=== PATIENT | female | born 1990 | race African-American/Black ===

== ENCOUNTER 2019-07-03 23:04 | Emergency (ER) | payer MEDICAID ==
[~2019-07-03] VITALS: Ht 167.6 cm; Wt 77.1 kg
[~2019-07-03 23:04] MED LIST: ACETAMINOPHEN-1 EAC1 ORAL; IBUPROFEN600 MG ORAL; NKM
--- NOTE | 2019-07-04 | NUR ---
ED Nurse Note: Walk-in patient with complaints left leg pain, x 1 day. 10/10 pain level. Patient is accompanied by a small child.
[2019-07-04] MEDS ORDERED: Ketorolac 60mg Inj IM ONE (00:30)
[2019-07-04] MEDS ORDERED: HYDROCODON-ACE1 EA15 ORAL (01:25)
[2019-07-04] MEDS ORDERED: IBUPROFEN600 MG ORAL (01:25)
--- NOTE | 2019-07-04 01:25 | Emergency Room Report ---
History of Present Illness General Chief Complaint: Lower Extremity Injury Source: Patient Present Illness HPI Is a 28-year-old female with no past medical history. She presents with chief complaint of left thigh pain. Onset for last couple days. No trauma. It was slowly painful but now severe. Worse with movement. Worse with palpation. Localized to the lateral aspect of the hip and thigh area. No injury. Pain is 9 out of 10. Allergies: Coded Allergies: No Known Allergies (Unverified , 04/29/16) Patient History Past Medical History: none, see triage record, old chart reviewed Past Surgical History: none Pertinent Family History: none Social History: Denies: smoking Last Menstrual Period: 07/03/19 Now: No Immunizations: other Reviewed Nursing Documentation: PMH: Agreed; PSxH: Agreed Nursing Documentation-PMH Past Medical History: No Stated History Review of Systems Eye: Denies: eye pain, blurred vision ENT: Denies: ear pain, nose congestion, throat swelling Respiratory: Denies: cough, shortness of breath Cardiovascular: Denies: chest pain, palpitations Gastrointestinal: Denies: abdominal pain, diarrhea, nausea, vomiting Musculoskeletal: Reports: joint pain, muscle pain; Denies: back pain Skin: Denies: rash Neurological: Denies: headache, numbness Endocrine: Denies: increased thirst, increased urine Hematologic/Lymphatic: Denies: easy bruising All Other Systems: negative except mentioned in HPI Physical Exam Vital Signs Date Time Temp Pulse Resp B/P (MAP) Pulse Ox O2 Delivery O2 Flow Rate FiO2 07/03/19 23:57 98.4 90 18 118/81 (93) 97 Room Air Vitals normal Sp02 EP Interpretation: reviewed, normal General Appearance: well appearing, no apparent distress, alert Head: normocephalic, atraumatic Eyes: bilateral eye PERRL, bilateral eye EOMI ENT: hearing grossly normal, normal pharynx Neck: full range of motion, supple, no meningismus Respiratory: chest non-tender, lungs clear, normal breath sounds Cardiovascular #1: regular rate, rhythm, no murmur Gastrointestinal: normal bowel sounds, non tender, no mass, no organomegaly, no bruit, non-distended Musculoskeletal: back normal, gait/station normal, normal range of motion, other - Left leg: She has tenderness along the iliotibial band. Hip tender with movement and range of motion. Psychiatric: mood/affect normal Medical Decision Making Diagnostic Impression: Primary Impression: Iliotibial band syndrome, left leg ER Course Patient with inflammation of the iliotibial band. No evidence of any fracture dislocation. No DVT clinically. Will discharge home. Other X-Ray Diagnostic Results Other X-Ray Diagnostic Results : X-Ray ordered: X-rays of left hip # of Views/Limited Vs Complete: 3 View Indication: Pain EP Interpretation: Yes Interpretation: no dislocation, no soft tissue swelling, no fractures Impression: No acute disease Electronically Signed by: Costa Berrios MD Last Vital Signs Date Time Temp Pulse Resp B/P (MAP) Pulse Ox O2 Delivery O2 Flow Rate FiO2 07/03/19 23:57 98.4 90 18 118/81 (93) 97 Room Air Status: improved Disposition: HOME, SELF-CARE Condition: Stable Scripts Ibuprofen* (MOTRIN*) 600 Mg Tablet 600 MG ORAL THREE TIMES A DAY, #30 TAB 0 Refills Prov: Costa Berrios MD 07/04/19 Hydrocodone/Acetaminophen 5-325* (HYDROCODONE/ACETAMINOPHEN 5-325*) 1 Each Tablet 1 TAB ORAL Q6H PRN for For Pain, #15 TAB 0 Refills Prov: Costa Berrios MD 07/04/19 Additional Instructions: Follow-up with your doctor in 7 days. If continue with pain after 1 to 2 weeks , may need an MRI. Return if worse. Costa Berrios MD Jul 04, 2019 01:25
[2019-07-04 01:40] VITALS: BP 118/81
--- NOTE | 2019-07-04 01:40 | NUR ---
ER DISCHARGE NOTE: Patient is cleared to be discharged per ERMD, pt is aox4, on room air, with stable vital signs. pt was given dc and prescription instructions, pt was able to verbalize understanding, pt id band removed without complications. pt is able to ambulate with steady gait. pt took all belongings. pt able to verbalize proper medication administration and s/s to monitor for, nad noted during d/c.
--- NOTE | 2019-07-04 16:03 | Diagnostic Imaging Report ---
Indication: Left hip pain for 2 days Technique: One view the pelvis, 2 views of the left hip Comparison: none Findings: No acute fractures. No dislocations. The joint spaces are preserved. Impression: No acute process
== END 2019-07-04 01:40 | disposition home or self-care (01) ==
LOC: EMR 07-04 00:19
DX: M76.32 Iliotibial band syndrome, left leg (principal)
CPT/HCPCS: 73502; 99283

== ENCOUNTER 2019-08-11 12:26 | Emergency (ER) | payer MEDICAID ==
[~2019-08-11] VITALS: Ht 167.6 cm; Wt 72.1 kg
[~2019-08-11 12:26] MED LIST changes: +HYDROCODON-ACE1 EA15 ORAL
--- NOTE | 2019-08-11 12:35 | NUR ---
ED Nurse Note: Pt not found in waiting room.
[2019-08-11 12:50] VITALS: BP 118/75
[2019-08-11] MEDS ORDERED: Ketorolac 30mg Inj IM ONE (13:15)
--- NOTE | 2019-08-11 13:17 | Emergency Room Report ---
History of Present Illness General Chief Complaint: Back Pain-No Injury Present Illness HPI 28-year-old female presents to the emergency department complaining of 9 out of 10 severity progressive back pain x4 days. Patient reports similar symptoms on the left leg last month. Patient reports tightness she reports exacerbation of her pain upon twisting of the torso or bending forward. Patient denies appreciable trauma or fall she denies strenuous activities. Patient denies pain with breathing. Patient denies chest pain, shortness of breath, fevers or chills. Denies abdominal pain, dysuria, urinary frequency or urgency. Patient denies recent spinal procedures or history of cancer. She denies bruises, erythema or swelling. Patient denies midline spinal pain or tenderness. Patient denies paresthesias, urinary retention/incontinence, incontinence of bowel movements or saddle anesthesia. No other aggravating or relieving factors. Allergies: Coded Allergies: No Known Allergies (Unverified , 04/29/16) Patient History Past Medical History: see triage record Past Surgical History: none Pertinent Family History: none Last Menstrual Period: 07/2019 Now: No Reviewed Nursing Documentation: PMH: Agreed; PSxH: Agreed Review of Systems All Other Systems: negative except mentioned in HPI Physical Exam Vital Signs Date Time Temp Pulse Resp B/P (MAP) Pulse Ox O2 Delivery O2 Flow Rate FiO2 08/11/19 12:50 99.0 83 19 118/75 (89) 99 Room Air Sp02 EP Interpretation: reviewed, normal General Appearance: no apparent distress, alert, GCS 15, non-toxic Head: normocephalic, atraumatic Eyes: bilateral eye normal inspection, bilateral eye PERRL ENT: hearing grossly normal, normal voice Neck: full range of motion Respiratory: lungs clear, normal breath sounds, speaking full sentences Cardiovascular #1: regular rate, rhythm Gastrointestinal: non tender, soft Genitourinary: normal inspection, no CVA tenderness Musculoskeletal: gait/station normal, normal range of motion, tender - TTP to the left Thoracic paraspinal musculature and the left rhomboid, no midline spinous process ttp, no obvious step-off. Pt. noted to be ambulatory with FROM , able to go from seated to standing position without assistance. Pt. was able to flex forward. Neurologic: alert, oriented x3, responsive, motor strength/tone normal, sensory intact, normal gait, speech normal, grossly normal Psychiatric: judgement/insight normal, other - Pt. is impatient and pacing waiting for evaluation. Verbally expressing dissatisfaction loudly in the main hallway. Skin: no rash Medical Decision Making PA Attestation Dr. Manzo Is my supervising Physician whom patient management has been discussed with. Diagnostic Impression: Primary Impression: Back pain Qualified Codes: M54.5 - Low back pain ER Course 28-year-old female presents to the emergency department complaining of 9 out of 10 severity progressive back pain x4 days. Patient reports similar symptoms on the left leg last month. Patient reports tightness she reports exacerbation of her pain upon twisting of the torso or bending forward. Patient denies appreciable trauma or fall she denies strenuous activities. Patient denies pain with breathing. Patient denies chest pain, shortness of breath, fevers or chills. Denies abdominal pain, dysuria, urinary frequency or urgency. Patient denies recent spinal procedures or history of cancer. She denies bruises, erythema or swelling. Patient denies midline spinal pain or tenderness. Patient denies paresthesias, urinary retention/incontinence, incontinence of bowel movements or saddle anesthesia. No other aggravating or relieving factors. Ddx considered but are not limited to Fracture, dislocation, contusion, epidural abscess, dissection, UTI/ pyelonephritis, Sprain/Strain/Spasm just to name a few. Vital signs: are WNL, pt. is afebrile H&PE are most consistent with muscle spasm/ strain - superficial ttp, no obvious deformities, pt. NAD, non-toxic in appearance otherwise. ORDERS: none required at this time. ED INTERVENTIONS: -Toradol IM -Lidoderm TP -I do not identify an emergent condition at this time. With current presentation , pt. is stable for close outpatient follow up and conservative treatment. D/ w pt. to return promptly to ED with worsening or new symptoms.- Pt. verbalizes' understanding and agreement with proposed treatment plan. DISCHARGE: At this time pt. is stable for d/c to home. Will provide printed patient care instructions, and any necessary prescriptions. Care plan and follow up instructions have been discussed with the patient prior to discharge. Last Vital Signs Date Time Temp Pulse Resp B/P (MAP) Pulse Ox O2 Delivery O2 Flow Rate FiO2 08/11/19 12:50 99.0 83 19 118/75 (89) 99 Room Air Disposition: HOME, SELF-CARE Condition: Stable Scripts Ibuprofen* (MOTRIN*) 600 Mg Tablet 600 MG ORAL THREE TIMES A DAY, #30 TAB 0 Refills Prov: Dee Akins 08/11/19 Lidocaine Patch* (Lidoderm Patch*) 1 Each Adh..patch 1 PATCH TOPIC DAILY, #30 PATCH 0 Refills Patch(es) may remain in place for up to 12 hours in any 24-hour period. Prov: Dee Akins 08/11/19 Methocarbamol* (ROBAXIN-750*) 750 Mg Tablet 750 MG PO QID, #28 TAB 0 Refills Prov: Dee Akins 08/11/19 Referrals: [facility]ERR[facility] (PCP) Departure Forms: Return to Work Return to Work Date: Aug 15, 2019 Work Restrictions: None Other Restrictions: May return Sooner if Symptoms have resolved. Return to Full Activity: Aug 15, 2019 Patient Instructions: Back Pain, Adult Additional Instructions: Take medications as directed. Follow up with a Primary Care Provider in 3-5 days, even if your symptoms have resolved. --Please review list of primary care clinics, if you do not already have a primary care provider Return sooner to ED if new symptoms occur, or current symptoms become worse. Do not drink alcohol, drive, or operate heavy machinery while taking Robaxin ( Muscle Relaxers) as this may cause drowsiness. - Please note that this Emergency Department Report was dictated using [employer] tender technology software, occasionally this can lead to erroneous entry secondary to interpretation by the dictation equipment. Dee Akins Aug 11, 2019 13:17
[2019-08-11] MEDS ORDERED: IBUPROFEN600 MG ORAL (13:18)
[2019-08-11] MEDS ORDERED: LIDODERM700 M1 TOPIC (13:18)
[2019-08-11] MEDS ORDERED: ROBAXIN-750750 MG PO (13:18)
[2019-08-11] MEDS ORDERED: NKM (13:21)
--- NOTE | 2019-08-11 13:33 | NUR ---
ED Nurse Note: pt refused medication until she sees the MD.
--- NOTE | 2019-08-11 14:40 | NUR ---
ER DISCHARGE NOTE: Patient is cleared to be discharged per ERMD, pt is aox4, on room air, with stable vital signs. pt was given dc and prescription instructions, pt was able to verbalize understanding, pt id band removed without complications. pt is able to ambulate with steady gait. pt took all belongings.
== END 2019-08-11 14:00 | disposition home or self-care (01) ==
LOC: EMR 12:56
DX: M54.5 Low back pain (principal)
CPT/HCPCS: 96372; J1885; Z7502; 99283

== ENCOUNTER 2020-04-30 12:08 | Emergency (ER) | payer MEDICAID ==
[~2020-04-30] VITALS: Ht 167.6 cm; Wt 81.6 kg
[~2020-04-30 12:08] MED LIST changes: +LIDODERM700 M1 TOPIC; +ROBAXIN-750750 MG PO
[2020-04-30] MEDS ORDERED: Acetaminophen 500mg (ES) tab ORAL ONE (13:00)
[2020-04-30 13:23] LABS: BASOPHILS % (AUTO) 1.1 % (0.0-2.0); EOSINOPHILS % (AUTO) 0.8 % (0.0-3.0); HEMATOCRIT 34.9 % (37.0-47.0); HEMOGLOBIN 10.4 G/DL (12.0-16.0); LYMPHOCYTES % (AUTO) 24.2 % (20.0-45.0); MEAN CORPUSCULAR VOLUME 80 FL (80-99); MONOCYTES % (AUTO) 6.2 % (1.0-10.0); NEUTROPHILS % (AUTO) 67.6 % (45.0-75.0); PLATELET COUNT 247 K/UL (150-450); RED BLOOD COUNT 4.34 M/UL (4.20-5.40); RED CELL DISTRIBUTION WIDTH 13.6 % (11.6-14.8); WHITE BLOOD COUNT 7.8 K/UL (4.8-10.8)
[2020-04-30 13:25] LABS: APPEARANCE,URINE CLEAR; BILIRUBIN, URINE NEGATIVE (NEGATIVE); COLOR,URINE PALE YELLOW; GLUCOSE, URINE (UA) NEGATIVE (NEGATIVE); KETONES,URINE NEGATIVE (NEGATIVE); LEUKOCYTE ESTERASE ,URINE 1+ (NEGATIVE); NITRITE,URINE NEGATIVE (NEGATIVE); PH,URINE 7 (4.5-8.0); PROTEIN,URINE NEGATIVE (NEGATIVE); UROBILINOGEN,URINE NORMAL MG/DL (0.0-1.0)
[2020-04-30 13:34] LABS: ANION GAP 8 mmol/L (5-15); BLOOD UREA NITROGEN 7 mg/dL (7-18); CALCIUM 8.6 MG/DL (8.5-10.1); CARBON DIOXIDE 24 MMOL/L (21-32); CHLORIDE 102 MMOL/L (98-107); CREATININE 0.6 MG/DL (0.55-1.30); POTASSIUM 4.1 MMOL/L (3.5-5.1); SODIUM 134 MMOL/L (136-145)
[2020-04-30 13:38] LABS: ALANINE AMINOTRANSFERASE 17 U/L (12-78); ALBUMIN 3.1 G/DL (3.4-5.0); ALBUMIN/GLOBULIN RATIO 0.8 (1.0-2.7); ALKALINE PHOSPHATASE 55 U/L (46-116); ASPARTATE AMINO TRANSFERASE 21 U/L (15-37); BILIRUBIN,TOTAL 0.2 MG/DL (0.2-1.0)
--- NOTE | 2020-04-30 15:10 | Diagnostic Imaging Report ---
EXAM: US OB 1st Trimester Gestation CLINICAL HISTORY: Reason For Exam: ABD PAIN. COMPARISON: None TECHNIQUE: Ultrasound examination of the Maikol includes grayscale images, and color and spectral doppler analysis. FINDINGS: There appears to be a single intrauterine . Estimated gestational age is 11 weeks 6 days by sonographic measurements. This is concordant with clinical dates. Estimated date of confinement is 11/13/2020. cardiac activity measured at 160 bpm. Amniotic fluid volume appears appropriate. There is no evidence of an implantation bleed. Both ovaries are normal in size and vascular flow demonstrated bilaterally. Cervix appears closed. IMPRESSION: FIRST TRIMESTER APPROXIMATELY 11 WEEKS 6 DAYS BY SONOGRAPHIC MEASUREMENTS CONCORDANT WITH CLINICAL DATES. NO ACUTE ABNORMALITY SEEN. RECOMMEND APPROPRIATE OB FOLLOW-UP.
[2020-04-30] MEDS ORDERED: ONDANSETRON ODT4 MG BC (15:11)
[2020-04-30] MEDS ORDERED: TYLENOL EXTRA500 MG ORAL (15:11)
[2020-04-30] MEDS ORDERED: PRENATAL + DHA1 EAC1 PO (15:11)
[2020-04-30 15:17] VITALS: BP 108/68
--- NOTE | 2020-04-30 15:21 | Diagnostic Imaging Report ---
EXAM: ULTRASOUND US ABD Complete CLINICAL HISTORY: Reason For Exam: ABD PAIN. COMPARISON: None TECHNIQUE: Ultrasound examination of the abdomen includes grayscale images, and color and spectral doppler analysis. FINDINGS: The liver and spleen are homogeneous. The gallbladder is without sludge or stone. Common bile duct measures 3 mm. The pancreas is unremarkable to the extent visualized. The kidneys are normal in size, shape and axis. Aorta and cava are within normal limits. IMPRESSION: UNREMARKABLE ULTRASOUND OF THE ABDOMEN.
--- NOTE | 2020-05-01 15:03 | Emergency Room Report ---
History of Present Illness General Chief Complaint: Complications Source: Patient Present Illness HPI 29-year-old female presents presenting for abdominal pain. Right-sided, dull, 7 out of 10, nonradiating. States she is about 8 weeks . Denies any vaginal bleeding or discharge. Denies nausea or vomiting. No other aggravating relieving factors. Denies any other associated symptoms Allergies: Coded Allergies: No Known Allergies (Unverified , 04/29/16) COVID-19 Screening Contact w/high risk pt: No Recent Travel to affected area: No Experienced COVID-19 symptoms?: No COVID-19 Testing performed OIL EXPELLER: No Patient History Past Medical History: none Past Surgical History: none Pertinent Family History: none Social History: Denies: smoking, alcohol use, drug use Last Menstrual Period: 02/25 Now: Yes : 4 Para: 2 Immunizations: UTD Reviewed Nursing Documentation: PMH: Agreed; PSxH: Agreed Nursing Documentation-PMH Past Medical History: No Stated History Review of Systems All Other Systems: negative except mentioned in HPI Physical Exam Vital Signs Date Time Temp Pulse Resp B/P (MAP) Pulse Ox O2 Delivery O2 Flow Rate FiO2 04/30/20 12:27 99.0 101 16 108/68 (81) 99 Room Air Sp02 EP Interpretation: reviewed, normal General Appearance: no apparent distress, alert, GCS 15, non-toxic Head: normocephalic, atraumatic Eyes: bilateral eye normal inspection, bilateral eye PERRL ENT: hearing grossly normal, normal pharynx, no angioedema, normal voice Neck: full range of motion, supple/symm/no masses Respiratory: chest non-tender, lungs clear, normal breath sounds, speaking full sentences Cardiovascular #1: regular rate, rhythm, no edema Cardiovascular #2: 2+ carotid (R), 2+ carotid (L), 2+ radial (R), 2+ radial (L) , 2+ dorsalis pedis (R), 2+ dorsalis pedis (L) Gastrointestinal: normal bowel sounds, soft, non-distended, no guarding, no rebound, tenderness Rectal: deferred Genitourinary: normal inspection, no CVA tenderness Musculoskeletal: back normal, normal range of motion, gait/station normal, non- tender Neurologic: alert, motor strength/tone normal, oriented x3, sensory intact, responsive, speech normal Psychiatric: judgement/insight normal, memory normal, mood/affect normal, no suicidal/homicidal ideation Reflexes: 3+ bicep (R), 3+ bicep (L), 3+ tricep (R), 3+ tricep (L), 3+ knee (R) , 3+ knee (L) Skin: no rash Lymphatic: no adenopathy Medical Decision Making Diagnostic Impression: Primary Impression: Threatened ER Course Hospital Course 29-year-old female presents to ED complaining of RUQ abdominal pain with N/V. Differential diagnoses include: gastrits, gastroenterits, ectopic , ovarian torsion/cyst, UTI Clinical course Patient placed on stretcher in ED. After initial history and physical I ordered labs, IV fluids and OB/ABD US Labs-no leukocytosis, electrolytes okay, HB/Hct stable Pelvic ultrasound-IUP detected with heart rate 11 weeks ABD US - no acute process I discussed findings with patient. No findings on ultrasound. Labs unremarkable. No spotting or bleeding. Will discharge home. I will provide OB /[facility] [employer] AND DELIVERY referrals Diagnosis - threatened Stable and discharged to home vitamins. Followup with PMD/[employer]. Return to ED if symptoms recur or worsen Labs Test 04/30/20 12:56 White Blood Count 7.8 K/UL (4.8-10.8) Red Blood Count 4.34 M/UL (4.20-5.40) Hemoglobin 10.4 G/DL (12.0-16.0) Hematocrit 34.9 % (37.0-47.0) Mean Corpuscular Volume 80 FL (80-99) Mean Corpuscular Hemoglobin 24.0 PG (27.0-31.0) Mean Corpuscular Hemoglobin Concent 29.9 G/DL (32.0-36.0) Red Cell Distribution Width 13.6 % (11.6-14.8) Platelet Count 247 K/UL (150-450) Mean Platelet Volume 6.8 FL (6.5-10.1) Neutrophils (%) (Auto) 67.6 % (45.0-75.0) Lymphocytes (%) (Auto) 24.2 % (20.0-45.0) Monocytes (%) (Auto) 6.2 % (1.0-10.0) Eosinophils (%) (Auto) 0.8 % (0.0-3.0) Basophils (%) (Auto) 1.1 % (0.0-2.0) Urine Color Pale yellow Urine Appearance Clear Urine pH 7 (4.5-8.0) Urine Specific [place] 1.015 (1.005-1.035) Urine Protein Negative (NEGATIVE) Urine Glucose (UA) Negative (NEGATIVE) Urine Ketones Negative (NEGATIVE) Urine Blood Negative (NEGATIVE) Urine Nitrite Negative (NEGATIVE) Urine Bilirubin Negative (NEGATIVE) Urine Urobilinogen Normal MG/DL (0.0-1.0) Urine Leukocyte Esterase 1+ (NEGATIVE) Urine RBC 0-2 /HPF (0 - 2) Urine WBC 0-2 /HPF (0 - 2) Urine Squamous Epithelial Cells Occasional /LPF Urine Bacteria Few /HPF (NONE) Urine HCG, Qualitative Positive (NEGATIVE) Sodium Level 134 MMOL/L (136-145) Potassium Level 4.1 MMOL/L (3.5-5.1) Chloride Level 102 MMOL/L (98-107) Carbon Dioxide Level 24 MMOL/L (21-32) Anion Gap 8 mmol/L (5-15) Blood Urea Nitrogen 7 mg/dL (7-18) Creatinine 0.6 MG/DL (0.55-1.30) Estimat Glomerular Filtration Rate > 60 mL/min (>60) Glucose Level 85 MG/DL (74-106) Calcium Level 8.6 MG/DL (8.5-10.1) Total Bilirubin 0.2 MG/DL (0.2-1.0) Aspartate Amino Transf (AST/SGOT) 21 U/L (15-37) Alanine Aminotransferase (ALT/SGPT) 17 U/L (12-78) Alkaline Phosphatase 55 U/L (46-116) Total Protein 6.8 G/DL (6.4-8.2) Albumin 3.1 G/DL (3.4-5.0) Globulin 3.7 g/dL Albumin/Globulin Ratio 0.8 (1.0-2.7) Lipase 132 U/L (73-393) Human Chorionic Gonadotropin, Quant 05227 mIU/mL (1-6) CT/MRI/US Diagnostic Results CT/MRI/US Diagnostic Results #1: Imaging Test Ordered: ABD US Impression Procedure: US ABD Complete EXAM: ULTRASOUND US ABD Complete CLINICAL HISTORY: Reason For Exam: ABD PAIN. COMPARISON: None TECHNIQUE: Ultrasound examination of the abdomen includes grayscale images, and color and spectral doppler analysis. FINDINGS: The liver and spleen are homogeneous. The gallbladder is without sludge or stone. Common bile duct measures 3 mm. The pancreas is unremarkable to the extent visualized. The kidneys are normal in size, shape and axis. Aorta and cava are within normal limits. IMPRESSION: UNREMARKABLE ULTRASOUND OF THE ABDOMEN. CT/MRI/US Diagnostic Results #2: Imaging Test Ordered: OB US Impression Procedure: US OB 1st Trimester Gestation EXAM: US OB 1st Trimester Gestation CLINICAL HISTORY: Reason For Exam: ABD PAIN. COMPARISON: None TECHNIQUE: Ultrasound examination of the Maikol includes grayscale images, and color and spectral doppler analysis. FINDINGS: There appears to be a single intrauterine . Estimated gestational age is 11 weeks 6 days by sonographic measurements. This is concordant with clinical dates. Estimated date of confinement is 11/13/2020. cardiac activity measured at 160 bpm. Amniotic fluid volume appears appropriate. There is no evidence of an implantation bleed. Both ovaries are normal in size and vascular flow demonstrated bilaterally. Cervix appears closed. IMPRESSION: FIRST TRIMESTER APPROXIMATELY 11 WEEKS 6 DAYS BY SONOGRAPHIC MEASUREMENTS CONCORDANT WITH CLINICAL DATES. NO ACUTE ABNORMALITY SEEN. RECOMMEND APPROPRIATE OB FOLLOW-UP. Last Vital Signs Date Time Temp Pulse Resp B/P (MAP) Pulse Ox O2 Delivery O2 Flow Rate FiO2 04/30/20 15:17 99.0 16 108/68 99 Room Air 04/30/20 12:27 101 Status: improved Disposition: HOME, SELF-CARE Condition: Stable Scripts Ondansetron Odt* (ZOFRAN ODT*) 4 Mg Tab.rapdis 4 MG BC EVERY 6 HOURS PRN for Nausea & Vomiting, #10 TAB 0 Refills Prov: Carlos Jerome MD 04/30/20 Vit #91/Fe Fum/Fa/Dha ( + DHA COMBO PACK) 1 Each Combo..pkg 1 EACH PO DAILY, #30 PACK Prov: Carlos Jerome MD 04/30/20 Acetaminophen* (TYLENOL EXTRA STRENGTH*) 500 Mg Tablet 500 MG ORAL Q8H PRN for Prn Headache/Temp > 101, #30 TAB 0 Refills Prov: Carlos Jerome MD 04/30/20 Referrals: NON PHYSICIAN (PCP) Kalyn De La Cruz [facility]. [facility] Patient Instructions: Threatened Miscarriage, [id number] Carlos Jerome MD May 01, 2020 15:03
[2020-05-02] MEDS ORDERED: PRENATAL VITAM1 EACH PO (14:24)
== END 2020-04-30 15:13 | disposition home or self-care (01) ==
LOC: EMR 12:52
DX: O20.0 Threatened abortion (principal); Z3A.11 11 weeks gestation of pregnancy
CPT/HCPCS: 36415; 76700; 76801; 80053; 81003; 81025; 83690; 84702; 85025; 96374; J2405; J7040; Z7502; 76817; 99284

== ENCOUNTER 2020-12-13 14:07 | Emergency (ER) | payer MEDICAID ==
[~2020-12-13] VITALS: Ht 167.6 cm; Wt 77.1 kg
[~2020-12-13 14:07] MED LIST changes: +ONDANSETRON ODT4 MG BC; +PRENATAL + DHA1 EAC1 PO; +PRENATAL VITAM1 EACH PO; +TYLENOL EXTRA500 MG ORAL
[2020-12-13 14:10] VITALS: BP 112/74
--- NOTE | 2020-12-13 14:16 | NUR ---
ED Nurse Note: Patient from home and walked in due to back pain since yesterday. States that she had epidural anesthesia 3 weeks with vaginal delivery. Pt is AAO x4, ambulatory with non labored breathing.
[2020-12-13] MEDS ORDERED: Gadavist 7.5mMol/7.5ml vial IV PRN ×2 (14:45)
[2020-12-13 15:28] LABS: BASOPHILS % (AUTO) 1.1 % (0.0-2.0); HEMATOCRIT 39.3 % (37.0-47.0); HEMOGLOBIN 11.4 G/DL (12.0-16.0); LYMPHOCYTES % (AUTO) 27.9 % (20.0-45.0); MEAN CORPUSCULAR VOLUME 78 FL (80-99); MONOCYTES % (AUTO) 7.9 % (1.0-10.0); NEUTROPHILS % (AUTO) 61.1 % (45.0-75.0); PLATELET COUNT 229 K/UL (150-450); RED BLOOD COUNT 5.01 M/UL (4.20-5.40); RED CELL DISTRIBUTION WIDTH 13.1 % (11.6-14.8); WHITE BLOOD COUNT 7.5 K/UL (4.8-10.8)
[2020-12-13 15:40] LABS: ANION GAP 8 mmol/L (5-15); BLOOD UREA NITROGEN 13 mg/dL (7-18); CALCIUM 8.9 MG/DL (8.5-10.1); CARBON DIOXIDE 25 MMOL/L (21-32); CHLORIDE 106 MMOL/L (98-107); CREATININE 0.8 MG/DL (0.55-1.30); SODIUM 139 MMOL/L (136-145)
[2020-12-13 15:47] LABS: ALANINE AMINOTRANSFERASE 33 U/L (12-78); ALBUMIN 3.3 G/DL (3.4-5.0); ALBUMIN/GLOBULIN RATIO 0.8 (1.0-2.7); ALKALINE PHOSPHATASE 134 U/L (46-116); ASPARTATE AMINO TRANSFERASE 35 U/L (15-37); BILIRUBIN,TOTAL 0.3 MG/DL (0.2-1.0)
--- NOTE | 2020-12-13 16:01 | Emergency Room Report ---
History of Present Illness General Chief Complaint: Back Pain-No Injury Source: Patient Present Illness HPI 30 YO female presents to the ED c/o back pain. Pt. is S/p Epidural + Vaginal delivery of baby 3 weeks ago. Pt. reports developing pain at the site of the epidural placement since yesterday. She denies fevers or chills. Pt. reports pain is severe and rates it as 10/10 in severity. She denies trauma or fall. Pt. reports that she is not . pt. states TOBACCO SCRAP SIFTER rx'd her [place] which has not been helping. She reports she has been putting on a "patch" at the area of pain which also has not helped. Pt. denies weakness or paresthesia. She reports excruciating pain exacerbated by any movement even taking breaths that are too deep. Pt. reports tenderness at the site of epidural placement. She denies hx of back pain. She denies cough, SOB, CP, palpitations or hemoptysis. Allergies: Coded Allergies: No Known Allergies (Unverified , 04/29/16) COVID-19 Screening Contact w/high risk pt: No Recent Travel to affected area: No Experienced COVID-19 symptoms?: No COVID-19 Testing performed PILOT STEAM YACHT: No Patient History Past Medical History: see triage record Past Surgical History: none Pertinent Family History: none Now: No Reviewed Nursing Documentation: PMH: Agreed; PSxH: Agreed Nursing Documentation-PMH Past Medical History: No Stated History Review of Systems All Other Systems: negative except mentioned in HPI Physical Exam Vital Signs Date Time Temp Pulse Resp B/P (MAP) Pulse Ox O2 Delivery O2 Flow Rate FiO2 12/13/20 14:10 98.6 74 16 112/74 98 Room Air Sp02 EP Interpretation: reviewed, normal General Appearance: no apparent distress, alert, GCS 15, non-toxic Head: normocephalic, atraumatic Eyes: bilateral eye normal inspection, bilateral eye PERRL ENT: hearing grossly normal, normal voice Neck: full range of motion Respiratory: chest non-tender, lungs clear, normal breath sounds, no respiratory distress, no accessory muscle use, no wheezing, speaking full sentences Cardiovascular #1: regular rate, rhythm, no edema, normal capillary refill Gastrointestinal: normal bowel sounds, non tender, soft Rectal: deferred Genitourinary: normal inspection, no CVA tenderness Musculoskeletal: normal range of motion, gait/station normal - slightly compensatory gait, tender - TTP in the mid to lower thoracic area of the spine, slightly more on the left. No lumbar spinous process ttp, palpable step-off or paraspinal ttp. No cervical tenderness. FROM of C-Spine, pain with ROM of T-spine/L-spine. NO obvious warmth or erythema. Neurologic: alert, motor strength/tone normal, oriented x3, sensory intact, responsive, speech normal Psychiatric: judgement/insight normal Skin: no rash, normal color, other - NO obvious warmth or erythema. Medical Decision Making PA Attestation Dr. Hurtado is my supervising Physician whom patient management has been discussed with. Diagnostic Impression: Primary Impression: Back pain Qualified Codes: M54.6 - Pain in thoracic spine ER Course 30 YO female presents to the ED c/o back pain. Pt. is S/p Epidural + Vaginal delivery of baby 3 weeks ago. Pt. reports developing pain at the site of the epidural placement since yesterday. She denies fevers or chills. Pt. reports pain is severe and rates it as 10/10 in severity. She denies trauma or fall. Pt. reports that she is not . pt. states TOBACCO SCRAP SIFTER rx'd her [place] which has not been helping. She reports she has been putting on a "patch" at the area of pain which also has not helped. Pt. denies weakness or paresthesia. She reports excruciating pain exacerbated by any movement even taking breaths that are too deep. Pt. reports tenderness at the site of epidural placement. She denies hx of back pain. She denies cough, SOB, CP, palpitations or hemoptysis. Ddx considered: epidural abscess, fracture, sprain/strain, PE, meningitis, spinal chord injury, sciatica, cauda equina, Pyelonephritis, renal calculi just to name a few. Vital signs reviewed and are WNL during ED visit. No saddle anesthesia noted, Pt. denies incontinence Neurovascular is intact ROM is limited due to pain ORDERS: -CBC: Unremarkable -CMP: WNL - normal renal function, pt. is a candidate for IV contrast. - MRI T & L Spine w. contrast: Unremarkable other than some degenerative changes and trace bilateral effusions. - UA: Pt. refused to give urine was asked multiple times by multiple caregivers INTERVENTIONS: - Lidoderm TP -Tylenol PO -Toradol IM -I do not identify an emergent condition at this time. With current presentation, pt. is stable for close outpatient follow up and conservative treatment. D/w pt. to return promptly to ED with worsening or new symptoms.- Pt. verbalizes' understanding and agreement with proposed treatment plan. DISCHARGE: At this time pt. is stable for d/c to home. Will provide printed patient care instructions, and any necessary prescriptions. Care plan and follow up instructions have been discussed with the patient prior to discharge. Labs Test 12/13/20 14:30 White Blood Count 7.5 K/UL (4.8-10.8) Red Blood Count 5.01 M/UL (4.20-5.40) Hemoglobin 11.4 G/DL (12.0-16.0) Hematocrit 39.3 % (37.0-47.0) Mean Corpuscular Volume 78 FL (80-99) Mean Corpuscular Hemoglobin 22.8 PG (27.0-31.0) Mean Corpuscular Hemoglobin Concent 29.0 G/DL (32.0-36.0) Red Cell Distribution Width 13.1 % (11.6-14.8) Platelet Count 229 K/UL (150-450) Mean Platelet Volume 6.3 FL (6.5-10.1) Neutrophils (%) (Auto) 61.1 % (45.0-75.0) Lymphocytes (%) (Auto) 27.9 % (20.0-45.0) Monocytes (%) (Auto) 7.9 % (1.0-10.0) Eosinophils (%) (Auto) 2.0 % (0.0-3.0) Basophils (%) (Auto) 1.1 % (0.0-2.0) Sodium Level 139 MMOL/L (136-145) Potassium Level 5.0 MMOL/L (3.5-5.1) Chloride Level 106 MMOL/L (98-107) Carbon Dioxide Level 25 MMOL/L (21-32) Anion Gap 8 mmol/L (5-15) Blood Urea Nitrogen 13 mg/dL (7-18) Creatinine 0.8 MG/DL (0.55-1.30) Estimat Glomerular Filtration Rate > 60 mL/min (>60) Glucose Level 89 MG/DL (74-106) Calcium Level 8.9 MG/DL (8.5-10.1) Total Bilirubin 0.3 MG/DL (0.2-1.0) Aspartate Amino Transf (AST/SGOT) 35 U/L (15-37) Alanine Aminotransferase (ALT/SGPT) 33 U/L (12-78) Alkaline Phosphatase 134 U/L (46-116) Total Protein 7.5 G/DL (6.4-8.2) Albumin 3.3 G/DL (3.4-5.0) Globulin 4.2 g/dL Albumin/Globulin Ratio 0.8 (1.0-2.7) CT/MRI/US Diagnostic Results CT/MRI/US Diagnostic Results #1: Imaging Test Ordered: MRI L Spine Impression " IMPRESSION: 1. No acute abnormality. 2. Mild degenerative disc disease at L4-5 and L5-S1." --Per official radiology report- Please see report for specific details. CT/MRI/US Diagnostic Results #2: Imaging Test Ordered: MRI T Spine Impression " IMPRESSION: 1. Normal thoracic spine MRI. 2. Trace bilateral pleural effusions." --Per official radiology report- Please see report for specific details. Last Vital Signs Date Time Temp Pulse Resp B/P (MAP) Pulse Ox O2 Delivery O2 Flow Rate FiO2 12/13/20 14:10 98.6 74 16 112/74 (87) 98 Room Air Status: improved Disposition: HOME, SELF-CARE Condition: Stable Scripts Ibuprofen* (MOTRIN*) 600 Mg Tablet 600 MG ORAL THREE TIMES A DAY, #20 TAB Prov: Dee Akins 12/13/20 Methocarbamol* (ROBAXIN-750*) 750 Mg Tablet 750 MG PO QID, #30 TAB 0 Refills Prov: Dee Akins 12/13/20 Referrals: [facility],REFERRING (PCP) Kalyn De La Cruz [facility] Patient Instructions: Back Pain, Adult Additional Instructions: ~ ~ An emergent medical condition has not been identified based on this patients presentation, exam and any necessary testing/imaging. The patient is determined to be stable for outpatient follow-up and management of symptoms by a primary c are provider. Take medications as directed. Do not drink alcohol, drive, or operate heavy machinery while taking Robaxin ( Muscle Relaxers) as this may cause drowsiness. Follow up with a Primary Care Provider in 3-5 days, even if your symptoms have resolved. --Please review list of primary care clinics, if you do not already have a primary care provider Return sooner to ED if new symptoms occur, or current symptoms become worse. - Please note that this Emergency Department Report was dictated using [employer] research fellow technology software, occasionally this can lead to erroneous entry secondary to interpretation by the dictation equipment. Dee Akins Dec 13, 2020 16:01
--- NOTE | 2020-12-13 16:42 | NUR ---
ED Nurse Note:gave pt urinal, said he will try
--- NOTE | 2020-12-13 18:31 | NUR ---
ED Nurse Note:requested several times to give a urine sample. pt stated she already went. reported this to Dee the provider Addendum: 12/13/20 at 1850 by [employer] Coco the provider stated it's ok not to obtain urine specimen
--- NOTE | 2020-12-13 18:40 | Diagnostic Imaging Report ---
EXAM: MR Lumbar Spine With Intravenous Contrast CLINICAL HISTORY: PAIN TECHNIQUE: Magnetic resonance images of the lumbar spine with intravenous contrast in multiple planes. COMPARISON: No relevant prior studies available. FINDINGS: No fracture or malalignment. Marrow signal is within normal limits. Normal appearance of the cord and cauda equina. Desiccation and disc bulges at L4-5 and L5-S1 with annular fissuring. Mild canal stenosis at L4-5 and mild right lateral recess stenosis at L5-S1. Mild bilateral foraminal stenosis at L5-S1 as well. Remainder of the foramina are widely patent. Paraspinous soft tissues are unremarkable. No abnormal enhancement. IMPRESSION: 1. No acute abnormality. 2. Mild degenerative disc disease at L4-5 and L5-S1.
--- NOTE | 2020-12-13 18:44 | Diagnostic Imaging Report ---
EXAM: MR Thoracic Spine With Intravenous Contrast CLINICAL HISTORY: PAIN TECHNIQUE: Magnetic resonance images of the thoracic spine with intravenous contrast in multiple planes. COMPARISON: No relevant prior studies available. FINDINGS: No fracture or malalignment. Disc spaces are maintained. No cord signal abnormality or spinal canal stenosis. No significant foraminal stenosis. No marrow replacing lesion. Trace bilateral pleural effusions. IMPRESSION: 1. Normal thoracic spine MRI. 2. Trace bilateral pleural effusions.
[2020-12-13] MEDS ORDERED: ROBAXIN-750750 MG PO (19:06)
[2020-12-13] MEDS ORDERED: IBUPROFEN600 M1 ORAL (19:06)
[2020-12-13] MEDS: Ketorolac 30mg Inj IM ONE (19:16)
--- NOTE | 2020-12-13 19:20 | NUR ---
ED Nurse Note: Patient is calm and cooperative. c/o pain 9/10, toradol and tylenol administered as ordered. Patient is stable, no acute distress.
--- NOTE | 2020-12-13 19:45 | NUR ---
ER DISCHARGE NOTE: Patient is cleared to be discharged per ERMD, pt is aox4, on room air, with stable vital signs. pt was given dc and prescription instructions, pt was able to verbalize understanding, pt id band and iv site removed without complications. pt is able to ambulate with steady gait. pt took all belongings.
== END 2020-12-13 19:50 | disposition home or self-care (01) ==
LOC: EMR 14:23
DX: M54.6 Pain in thoracic spine (principal)
CPT/HCPCS: 72147; 72149; 80053; 85025; 96372; A9585; J1885; Z7502; 99284